=== PATIENT | male | born 1975 | race Caucasian/White ===

== ENCOUNTER 2017-01-29 23:03 | Observation (INO) | payer OTHER ==
[~2017-01-29] VITALS: Ht 167.6 cm; Wt 116.4 kg
[~2017-01-29 23:03] MED LIST: ALBUTEROL SULF8.5 GM; ARIMIDEX1 MG PO; ASTELIN137 MCG/0.; ASTELIN137 MCG/0. IH; ATARAX,VISTARIL50 MG PO; AUGMENTIN500 MG PO; AZELASTINE137 MCG/0. BOTH NARES; CRESTOR5 MG PO; DEPAKENE; DEPAKOTE ER500 MG PO; DEPAKOTE PO; DIOVAN80 MG PO; FENOFIBRATE160 M1 PO; FLONASE16 G1 BOTH NARES; JARDIANCE10 MG PO; LAMICTAL25 MG PO; LITHIUM CARBON300 M1 PO; LITHIUM CARBON300 MG PO; LITHIUM CARBON600 MG PO; METOPROLOL SUCC25 MG PO; MUCINEX D ER T1 EAC1 PO; MUCINEX1200 MG PO; NASACORT AQ16.5 GM BOTH NARES; NORVASC; NORVASC5 MG PO; PREDNISONE20 MG PO; PROBIOTIC1 EAC2 PO; PROTONIX40 MG PO; PROZAC20 MG PO; PROZAC40 MG PO; RISPERDAL1 MG PO; RISPERDAL2 MG PO; ROXICET PO; SINGULAIR10 MG PO; SYMBICORT; SYMBICORT60 INHALAT IH; SYNTHROID50 MCG PO; TOPROL XL25 MG PO; TYLENOL WITH C1 EACH PO; VENTOLIN HFA18 GM IH; VESICARE10 MG PO; VITAMIN D250000 UNIT PO; XANAX XR PO; XANAX XR1 MG PO; XANAX XR2 MG PO; XANAX1 MG PO; ZYRTEC10 M2 PO; ZYRTEC10 M3 PO
[2017-01-29 23:47] LABS: MCH 30.6 PG (29.0-34.0); MCHC 32.3 G/DL (30.0-36.0); MCV 94.6 FL (86-99); MEAN PLAT.VOLUME 9.2 uM^3 (9.0-12.4); PLATELET COUNT 240 K/uL (156-360); RBC DIS.WIDTH-CV 13.2 % (11.8-14.6); RBC DIS.WIDTH-SD 45.8 % (39-53); RED BLOOD COUNT 4.97 M/uL (4.00-5.50); WHITE BLOOD COUNT 8.7 K/uL (4.1-10.2)
[2017-01-30 00:03] LABS: CHLORIDE 98 mEq/L (99-109); POTASSIUM 4.3 mEq/L (3.7-5.4); SODIUM 132 mEq/L (136-147)
[2017-01-30 00:04] LABS: GLUCOSE 153 mg/dL (70-99)
[2017-01-30 00:06] LABS: ANION GAP 11 MEQ/L (2-14)
[2017-01-30 00:07] LABS: TROP-I INTERPRETATION NEGATIVE; TROPONIN-I < 0.01 ng/mL (0.0-0.30)
[2017-01-30 00:08] LABS: GFR ESTIMATE (CALCULATED) > 59 mL/min/
[2017-01-30 00:09] LABS: UREA NITROGEN (BUN) 10 mg/dL (9-23)
[2017-01-30] MEDS ORDERED: ZYPREXA10 MG PO (03:14)
[2017-01-30] MEDS ORDERED: INVOKANA100 MG PO (03:16)
[2017-01-30 05:58] LABS: TROP-I INTERPRETATION NEGATIVE; TROPONIN-I 0.01 ng/mL (0.0-0.30)
[2017-01-30 07:55] LABS: POINT-OF-CARE METER ID UU14100415; POINT-OF-CARE USER ID STWBNM
[2017-01-30] MEDS ORDERED: DEPAKOTE500 MG PO ×2 (08:28→08:29)
[2017-01-30] MEDS ORDERED: SYNTHROID75 MCG PO (08:30)
[2017-01-30] MEDS ORDERED: METOPROLOL SUCC50 MG PO (08:33)
[2017-01-30] MEDS ORDERED: CRESTOR10 MG PO (08:35)
[2017-01-30] MEDS ORDERED: FLONASE16 G1 BOTH NARES (08:37)
[2017-01-30] MEDS ORDERED: CULTURELLE CAP1 EACH PO (08:37)
[2017-01-30] MEDS ORDERED: PROTONIX40 MG PO (10:54)
[2017-01-30] MEDS ORDERED: PROVENTIL,2.5 MG/3 M IH (10:55)
[2017-01-30 11:44] LABS: POINT-OF-CARE METER ID UU14100415; POINT-OF-CARE USER ID STWBNM
[2017-01-30 12:06] LABS: TROP-I INTERPRETATION NEGATIVE; TROPONIN-I < 0.01 ng/mL (0.0-0.30)
[2017-01-30 14:09] LABS: D-DIMER ELISA < 0.15 mg/L FEU (< 0.57)
[2017-01-30 16:34] VITALS: BP 127/99
== END 2017-01-30 16:30 | disposition home or self-care (01) ==
LOC: EME 23:03 → EDOF 01-30 03:26
PROVIDERS: Internal Medicine; Physician Assistant Medical
DX: R07.89 Other chest pain (principal); I16.0 Hypertensive urgency; I10 Essential (primary) hypertension; E87.1 Hypo-osmolality and hyponatremia; E11.9 Type 2 diabetes mellitus without complications; E78.5 Hyperlipidemia, unspecified; F41.9 Anxiety disorder, unspecified; F32.9 Major depressive disorder, single episode, unspecified; Z87.891 Personal history of nicotine dependence; J44.9 Chronic obstructive pulmonary disease, unspecified; J45.909 Unspecified asthma, uncomplicated; E66.9 Obesity, unspecified; Z68.41 Body mass index [BMI] 40.0-44.9, adult
CPT/HCPCS: 71020; 80048; 80178; 82948; 84484; 85027; 85379; 93005; 94640; 94799; 99202; 99281; 99285; G0378; J1650; J1815; J7030

== ENCOUNTER → 2017-02-20 | Outpatient (CLI) | payer OTHER ==
[~2017-02-20] MED LIST changes: +CRESTOR10 MG PO; +CULTURELLE CAP1 EACH PO; +DEPAKOTE500 MG PO; +INVOKANA100 MG PO; +METOPROLOL SUCC50 MG PO; +PROVENTIL,2.5 MG/3 M IH; +SYNTHROID75 MCG PO; +ZYPREXA10 MG PO
== END | disposition home or self-care (01) ==
LOC: RES 02-04 10:00
DX: J98.01 Acute bronchospasm (principal)
CPT/HCPCS: 94070

== ENCOUNTER 2017-10-28 14:43 | Emergency (ER) | payer OTHER ==
[~2017-10-28] VITALS: Ht 167.6 cm; Wt 117.2 kg
[2017-10-28 15:29] LABS: HEMATOCRIT 45.8 % (38.0-50.0); MCH 32.1 PG (29.0-34.0); MCHC 32.8 G/DL (30.0-36.0); MCV 98.1 FL (86-99); PLATELET COUNT 233 K/uL (156-360); RBC DIS.WIDTH-SD 50.8 % (39-53); RED BLOOD COUNT 4.67 M/uL (4.00-5.50); WHITE BLOOD COUNT 8.2 K/uL (4.1-10.2)
[2017-10-28 15:38] LABS: CHLORIDE 102 mEq/L (99-109); POTASSIUM 5.2 mEq/L (3.7-5.4); SODIUM 135 mEq/L (136-147)
[2017-10-28 15:40] LABS: GLUCOSE 249 mg/dL (70-99)
[2017-10-28 15:43] LABS: SERUM ETHYL ALCOHOL < 10 mg/dL
[2017-10-28 15:44] LABS: CREATININE 0.9 mg/dL (0.6-1.3); GFR ESTIMATE (CALCULATED) > 59 mL/min/ (58.99-99999)
[2017-10-28 15:45] LABS: UREA NITROGEN (BUN) 13 mg/dL (9-23)
[2017-10-28 16:11] LABS: AMPHETAMINE NEGATIVE (500 ng/mL); BARBITURATES NEGATIVE (200 ng/mL); BENZODIAZEPINES PRESUMPTIVE POSITIVE (150 ng/mL); BUPRENORPHINE NEGATIVE (10 ng/mL); COCAINE NEGATIVE (150 ng/mL); METHADONE NEGATIVE (200 ng/mL); METHAMPHETAMINE NEGATIVE (500 ng/mL); OPIATES (MORPHINE) NEGATIVE (100 ng/mL); OXYCODONE NEGATIVE (100 ng/mL); PHENCYCLIDINE NEGATIVE (25 ng/mL); PROPOXYPHENE NEGATIVE (300 ng/mL); THC CANNABINOIDS NEGATIVE (50 ng/mL); TRICYCLIC ANTIDEPRESSANTS NEGATIVE (300 ng/mL)
[2017-10-28 16:35] LABS: BENZODIAZEPINES, URINE SCREEN Negative (200 ng/mL)
[2017-10-28] MEDS ORDERED: ATARAX,VISTARIL25 MG PO (20:28)
[2017-10-28 20:39] VITALS: BP 140/82
== END 2017-10-28 20:41 | disposition home or self-care (01) ==
LOC: EME 14:43
DX: F31.4 Bipolar disorder, current episode depressed, severe, without psychotic features (principal); F41.9 Anxiety disorder, unspecified; F42.9 Obsessive-compulsive disorder, unspecified; E78.5 Hyperlipidemia, unspecified; I10 Essential (primary) hypertension; J45.909 Unspecified asthma, uncomplicated; F17.200 Nicotine dependence, unspecified, uncomplicated; Z88.2 Allergy status to sulfonamides; Z88.1 Allergy status to other antibiotic agents
CPT/HCPCS: 80048; 84999; 85027; 90839; 99281; 99285; G0480

== ENCOUNTER 2017-12-23 08:06 | Inpatient (IN) | payer OTHER ==
[~2017-12-23] VITALS: Ht 167.6 cm; Wt 112.6 kg
[~2017-12-23 08:06] MED LIST changes: +ATARAX,VISTARIL25 MG PO; -CRESTOR10 MG PO; +CRESTOR20 MG PO; +DIOVAN320 MG PO; +METOPROLOL SUC100 MG PO; -METOPROLOL SUCC50 MG PO
[2017-12-23 10:43] LABS: BASOPHIL (%) 0.4 % (0-1); BASOPHIL COUNT 0.1 K/uL (0-0.1); EOSINOPHIL (%) 0.1 % (0-5); HEMATOCRIT 44.7 % (38.0-50.0); HEMOGLOBIN 14.7 G/DL (12.5-16.6); LYMPHOCYTE (%) 9.8 % (15-42); LYMPHOCYTE COUNT 1.3 K/uL (1.0-2.8); MCH 31.5 PG (29.0-34.0); MCHC 32.9 G/DL (30.0-36.0); MCV 95.9 FL (86-99); MONOCYTE (%) 10.1 % (3-12); MONOCYTE COUNT 1.4 K/uL (0-0.8); NEUTROPHIL (%) 78.6 % (45-76); NEUTROPHIL COUNT 10.5 K/uL (1.8-6.4); PLATELET COUNT 159 K/uL (156-360); RBC DIS.WIDTH-CV 14.2 % (11.8-14.6); RBC DIS.WIDTH-SD 49.9 % (39-53); RED BLOOD COUNT 4.66 M/uL (4.00-5.50); WHITE BLOOD COUNT 13.4 K/uL (4.1-10.2)
[2017-12-23 10:51] LABS: CHLORIDE 100 mEq/L (99-109); POTASSIUM 4.5 mEq/L (3.7-5.4); SODIUM 130 mEq/L (136-147)
[2017-12-23 10:53] LABS: GLUCOSE 140 mg/dL (70-99)
[2017-12-23 10:56] LABS: CREATININE 0.7 mg/dL (0.6-1.3); GFR ESTIMATE (CALCULATED) > 59 mL/min/ (58.99-99999)
[2017-12-23 10:57] LABS: UREA NITROGEN (BUN) 8 mg/dL (9-23)
[2017-12-23] MEDS ORDERED: OLANZAPINE20 MG PO (12:10)
[2017-12-23] MEDS ORDERED: TRULICITY1.5 MG/0.5 SC (12:13)
[2017-12-23] MEDS ORDERED: ERGOCALCIF50000 UNIT PO (12:14)
[2017-12-23] MEDS ORDERED: JARDIANCE10 MG PO (12:14)
[2017-12-23 13:39] VITALS: BP 134/84
[2017-12-23 15:28] VITALS: BP 140/65
[2017-12-23 19:45] VITALS: BP 136/79
[2017-12-23 23:35] VITALS: BP 129/79
[2017-12-24 03:56] VITALS: BP 131/71
[2017-12-24 06:56] LABS: CHLORIDE 104 MEQ/L (99-109); CREATININE 0.7 MG/DL (0.6-1.3); GFR ESTIMATE (CALCULATED) > 59 mL/min/ (58.99-99999); GLUCOSE 173 mg/dL (70-99); POTASSIUM 4.8 MEQ/L (3.7-5.4); UREA NITROGEN (BUN) 19 mg/dL (9-23)
[2017-12-24 07:02] LABS: SODIUM 140 MEQ/L (136-147)
[2017-12-24 11:47] VITALS: BP 121/68
[2017-12-24 15:23] VITALS: BP 147/68
[2017-12-24 20:00] VITALS: BP 122/76
[2017-12-24 23:37] VITALS: BP 138/86
[2017-12-25 03:12] VITALS: BP 126/69
[2017-12-25 11:53] VITALS: BP 137/81
[2017-12-25 15:57] VITALS: BP 135/78
[2017-12-25 19:00] VITALS: BP 138/86
[2017-12-25 23:39] VITALS: BP 147/87
[2017-12-26 04:00] VITALS: BP 128/76
[2017-12-26 07:45] VITALS: BP 141/93
[2017-12-26 11:37] VITALS: BP 133/81
[2017-12-26 16:05] VITALS: BP 132/78
[2017-12-26 18:52] VITALS: BP 137/83
[2017-12-27 00:31] VITALS: BP 137/89
[2017-12-27 04:08] VITALS: BP 124/83
[2017-12-27 07:58] VITALS: BP 139/89
[2017-12-27 11:36] VITALS: BP 125/88
[2017-12-27] MEDS ORDERED: LEVOFLOXACIN500 MG PO (14:06)
[2017-12-27] MEDS ORDERED: MEDROL DOSEPAK4 MG PO (14:07)
== END 2017-12-27 15:20 | disposition home or self-care (01) | DRG 189 ==
LOC: EME 08:06 → EDOF 10:39 → ENRESERV 10:42 → 5WEST 12:31 → ENRESERV 12-25 00:48 → CANRESERV 12-25 12:47 → ENRESERV 12-25 12:47 → 5WEST 12-27 15:20
PROVIDERS: Emergency Medicine; Internal Medicine
DX: J96.01 Acute respiratory failure with hypoxia (principal); J45.41 Moderate persistent asthma with (acute) exacerbation; J44.0 Chronic obstructive pulmonary disease with (acute) lower respiratory infection; J20.9 Acute bronchitis, unspecified; J98.11 Atelectasis; I10 Essential (primary) hypertension; E11.9 Type 2 diabetes mellitus without complications; E78.5 Hyperlipidemia, unspecified; E87.1 Hypo-osmolality and hyponatremia; E03.9 Hypothyroidism, unspecified; F41.9 Anxiety disorder, unspecified; F31.9 Bipolar disorder, unspecified; F17.200 Nicotine dependence, unspecified, uncomplicated; E66.9 Obesity, unspecified; Z68.41 Body mass index [BMI] 40.0-44.9, adult; Z79.4 Long term (current) use of insulin; Z86.010 Personal history of colon polyps; Z86.14 Personal history of Methicillin resistant Staphylococcus aureus infection
CPT/HCPCS: 71045; 71260; 80048; 82948; 85025; 87502; 87641; 94640; 94640 76; 94799; 99281; 99285; G0378; J1650; J1815; J2930; J7030; J7512

== ENCOUNTER 2018-03-23 22:49 | Emergency (ER) | payer OTHER ==
[~2018-03-23] VITALS: Ht 167.6 cm; Wt 110.4 kg
[~2018-03-23 22:49] MED LIST changes: +ERGOCALCIF50000 UNIT PO; +LEVOFLOXACIN500 MG PO; +MEDROL DOSEPAK4 MG PO; +OLANZAPINE20 MG PO; +TRULICITY1.5 MG/0.5 SC
[2018-03-23 23:58] LABS: HEMATOCRIT 41.1 % (38.0-50.0); HEMOGLOBIN 13.8 G/DL (12.5-16.6); MCH 32.7 PG (29.0-34.0); MCHC 33.6 G/DL (30.0-36.0); MCV 97.4 FL (86-99); PLATELET COUNT 192 K/uL (156-360); RBC DIS.WIDTH-SD 46.3 % (39-53); RED BLOOD COUNT 4.22 M/uL (4.00-5.50); WHITE BLOOD COUNT 10.7 K/uL (4.1-10.2)
[2018-03-24 00:08] LABS: ALBUMIN 3.7 g/dL (3.2-4.8)
[2018-03-24 00:09] LABS: CHLORIDE 99 mEq/L (99-109); POTASSIUM 3.8 mEq/L (3.7-5.4); SODIUM 133 mEq/L (136-147)
[2018-03-24 00:11] LABS: GLUCOSE 128 mg/dL (70-99); TOTAL PROTEIN 6.7 g/dL (6.4-8.3)
[2018-03-24 00:13] LABS: TOTAL BILIRUBIN 0.3 mg/dL (0.0-1.0)
[2018-03-24 00:14] LABS: ALKALINE PHOSPHATASE 56 IU/L (3-129)
[2018-03-24 00:15] LABS: CREATININE 0.7 mg/dL (0.6-1.3); GFR ESTIMATE (CALCULATED) > 59 mL/min/ (58.99-99999)
[2018-03-24 00:16] LABS: AST (GOT) 15 IU/L (2-34); UREA NITROGEN (BUN) 11 mg/dL (9-23)
[2018-03-24 00:18] LABS: ALT (GPT) 16 IU/L (3-49)
[2018-03-24 07:01] VITALS: BP 167/103
== END 2018-03-24 07:03 | disposition short-term general hospital (02) ==
LOC: EME 22:49
PROVIDERS: Emergency Medicine
DX: R50.9 Fever, unspecified (principal); Z98.890 Other specified postprocedural states; I10 Essential (primary) hypertension; E11.9 Type 2 diabetes mellitus without complications; E78.5 Hyperlipidemia, unspecified; F41.9 Anxiety disorder, unspecified; F31.9 Bipolar disorder, unspecified; F17.200 Nicotine dependence, unspecified, uncomplicated; Z88.2 Allergy status to sulfonamides; Z88.1 Allergy status to other antibiotic agents; Z88.8 Allergy status to other drugs, medicaments and biological substances
CPT/HCPCS: 80053; 85027; 87040; 99281; 99284